=== PATIENT | male | born 1980 | race Caucasian/White ===

== ENCOUNTER 2024-07-17 09:45 | Emergency (ER) | payer OTHER, SELFPAY ==
--- OUTSIDE RECORDS SUMMARY | 2024-07-17 09:47 | XMS_ITS | Continuity of Care Document ---
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 It does not include entries that were removed or entered in error. Problem Status Onset Date Problem Type Date of Resolution Comments Source visit for: services physical Inactive 11/14/2013 Condition visit for: services physical (INITIAL POST-DEPLOYMENT ASSESSMENT: DOCUMENTED ON [id number]): Non-flyer. No referral. RTC or f/u as needed with PCM. Pt had all questions answered verbalized understanding and agreed to plan as above. p2 (preventive med) safety discussion. [facility] Patient Education - Medication Inactive Condition Patient Education - Medication (MEDICATION EDUCATION): medication education done by RN [facility] Medications Combined list of outpatient medications from Department of Defense and Veterans Affairs facilities.Medications provided include 1) outpatient medications from the last 15 months, and 2) patient-reported medications. Medication Details Route Status Patient Instructions Prescription Expires Prescription Number Last Dispense Date Ordering Provider Order Date Order Qty Source naproxen 500 mg oral tablet naproxen 500 mg oral tablet Start Date: 12/13/18 Status: Ordered Repeat number: 1 Ordered 2019 No Facilit y Access nortriptyli ne 10 mg oral capsule nortript yline 10 mg oral capsule Start Date: 12/13/18 Status: Ordered Repeat number: 1 Ordered 2019 No Facilit y Access Immunizations Combined list of available immunizations from the Department of Defense and Veterans Affairs facilities. 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 (MOD) complet ed SARS-COV- 2 (COVID-19 ) vaccine, mRNA, spike protein, LNP, preservat rebekah free, 100 mcg or 50 mcg dose DoD SARS-COV-2 (COVID-19) vaccine, mRNA, spike protein, LNP, preservative free, 100 mcg or 50 mcg dose 2 2020 [id number] 207 [employer] (MOD) complet ed SARS-COV- 2 (COVID-19 ) vaccine, mRNA, spike protein, LNP, preservat rebekah free, 100 mcg or 50 mcg dose DoD SARS-COV-2 (COVID-19) vaccine, mRNA, spike protein, LNP, preservative free, 100 mcg or 50 mcg dose 1 2020 [id number] 207 [employer] Inc. (MOD) complet ed SARS-COV- 2 (COVID-19 ) vaccine, mRNA, spike protein, LNP, preservat rebekah free, 100 mcg or 50 mcg dose DoD Influenza, injectable, Madin [place] Canine Kidney, preservative free, quadrivalent 1 2019 [id number] 171 Seqirus (SEQ) comple t ed Influenza , injectabl e, Madin [place] Canine Kidney, preservat rebekah free, quadrival ent DoD tetanus-dipht h toxoids (Td) adult/adol 2019 [id number] sanofi pasteur complet ed tetanus-d iphth toxoids (Td) adult/ado l 06/01/19 Given Ambulat ory Pharmac y tetanus and diphtheria toxoids, adsorbed, preservative free, for adult use (2 Lf of tetanus toxoid and 2 Lf of diphtheria toxoid) 3 2019 [id number] 09 Sanofi Pasteur (PMC) complet ed tetanus and diphtheri a toxoids, adsorbed, preservat rebekah free, for adult use (2 Lf of tetanus toxoid and 2 Lf of diphtheri a toxoid) DoD influenza, injectable, quadrivalent- pf 2018 [id number] 150 Seqirus complet ed influenza , injectabl e, quadrival ent-pf 01/20/19 Given Ambulat ory Pharmac y influenza, injectable, quadrivalent- pf 2018 [id number] 150 Se[employer]irus complet ed influenza , injectabl e, quadrival ent-pf 01/20/19 Given Ambulat ory Pharmac y Influenza, injectable, quadrivalent, preservative free 1 2018 [id number] 150 Seqirus (SEQ) complet ed Influenza , injectabl e, quadrival ent, preservat rebekah free DoD influenza, injectable, quadrivalent- pf 2017 [id number] 150 Seqirus complet ed influenza , injectabl e, quadrival ent-pf 12/20/17 Given Ambulat ory Pharmac y influenza, injectable, quadrivalent- pf 2017 [id number] 150 Seqirus complet ed influenza , injectabl e, quadrival ent-pf 12/20/17 Given Ambulat ory Pharmac y Influenza, injectable, quadrivalent, preservative free 20 2017 [id number] 150 Seqirus (SEQ) comple t ed Influenza , injectabl e, quadrival ent, preservat rebekah free DoD influenza, injectable, quadrivalent- pf 2016 [id number] 150 GlaxoSmithKli ne complet ed influenza , injectabl e, quadrival ent-pf 11/19/16 Given Ambulat ory Pharmac y influenza, injectable, quadrivalent- pf 2016 [id number] 150 GlaxoSmithKli ne complet ed influenza , injectabl e, quadrival ent-pf 11/19/16 Given Ambulat ory Pharmac y Influenza, injectable, quadrivalent, preservative free 1 2016 [id number] 150 SmithKline (SKB) complet ed Influenza , injectabl e, quadrival ent, preservat rebekah free DoD influenza, seasonal, injectable-pf 2014 [id number] 140 sanofi pasteur complet ed influenza , seasonal, injectabl e-pf 01/12/15 Given Ambulat ory Pharmac y influenza, seasonal, injectable-pf 2014 [id number] 140 sanofi pasteur complet ed influenza , seasonal, injectabl e-pf 01/12/15 Given Ambulat ory Pharmac y Influenza, seasonal, injectable, preservative free 1 2014 [id number] 140 Sanofi Pasteur ([facility]) complet ed Influenza , seasonal, injectabl e, preservat rebekah free DoD influenza, seasonal, injectable 2013 141 complet ed influenza , seasonal, injectabl e 01/16/14 Given Ambulat ory Pharmac y influenza, seasonal, injectable 2013 141 complet ed influenza , seasonal, injectabl e 01/16/14 Given Ambulat ory Pharmac y Influenza, seasonal, injectable 0 2013 141 (MVX) complet ed Influenza , seasonal, injectabl e DoD influenza, seasonal, injectable 2013 [id number] 141 Novartis Pharmaceutica ls complet ed influenza , seasonal, injectabl e 01/15/14 Given Ambulat ory Pharmac y influenza virus vaccine, unspecified 2013 [id number] 88 Novartis Pharmaceutica ls complet ed influenza virus vaccine, unspecifi ed 01/15/14 Given Ambulat ory Pharmac y influenza, seasonal, injectable 2013 [id number] 141 Novartis Pharmaceutica ls complet ed influenza , seasonal, injectabl e 01/15/14 Given Ambulat ory Pharmac y influenza virus vaccine, unspecified 2013 [id number] 88 Novartis Pharmaceutica ls complet ed influenza virus vaccine, unspecifi ed 01/15/14 Given Ambulat ory Pharmac y influenza virus vaccine, unspecified formulation 1 2013 [id number] 88 Novartis Pharmaceutica l Puja. (NOV) complet ed influenza virus vaccine, unspecifi ed formulati on DoD Influenza, seasonal, injectable 1 2013 [id number] 141 Novartis Pharmaceutica l Puja. (NOV) complet ed Influenza , seasonal, injectabl e DoD anthrax vaccine 2013 [id number] 24 Emergent [employer] complet ed anthrax vaccine 04/20/13 Given Ambulat ory Pharmac y measles/mumps /rubella virus vaccine 2013 [id number] 03 Merck & Company Inc complet ed measles/m umps/rube lla virus vaccine 04/20/13 Given Ambulat ory Pharmac y typhoid Vi capsular polysaccharid e vac 2013 [id number] 101 sanofi pasteur complet ed typhoid Vi capsular polysacch aride vac 04/20/13 Given Ambulat ory Pharmac y vaccinia (smallpox) vaccine 2013 VV04-00 [id number] 75 [employer] complet ed vaccinia (smallpox ) vaccine 04/20/13 Given Ambulat ory Pharmac y typhoid Vi capsular polysaccharid e vac 2013 [id number] 1 101 sanofi pasteur complet ed typhoid Vi capsular polysacch aride vac 04/20/13 Given Ambulat ory Pharmac y vaccinia (smallpox) vaccine 2013 [id number] [id number] 75 [employer] complet ed vaccinia (smallpox ) vaccine 04/20/13 Given Ambulat ory Pharmac y anthrax vaccine 2013 [id number] 24 [employer] complet ed anthrax vaccine 04/20/13 Given Ambulat ory Pharmac y measles/mumps /rubella virus vaccine 2013 [id number] 03 Merck & Company Inc complet ed measles/m umps/rube lla virus vaccine 04/20/13 Given Ambulat ory Pharmac y measles, mumps and rubella virus vaccine 2 2013 [id number] 03 Merck (MSD) complet ed measles, mumps and rubella virus vaccine DoD anthrax vaccine 5 2013 [id number] 24 [employer] [place] ([facility]) complet ed anthrax vaccine DoD vaccinia (smallpox) vaccine 1 2013 [id number] [id number] 75 [facility] ([facility]) complet ed vaccinia (smallpox ) vaccine DoD typhoid Vi capsular polysaccharid e vaccine 6 2013 [id number] 1 101 Sanofi Pasteur (PMC) complet ed typhoid Vi capsular polysacch aride vaccine DoD Influenza, injectable, MDCK-pf 2012 [id number] 153 Novartis Pharmaceutica ls complet ed Influenza , injectabl e, MDCK-pf 12/21/12 Given Ambulat ory Pharmac y Influenza, injectable, MDCK-pf 2012 [id number] 153 Novartis Pharmaceutica ls complet ed Influenza , injectabl e, MDCK-pf 12/21/12 Given Ambulat ory Pharmac y Influenza, injectable, Madin Suze Canine Kidney, preservative free 15 2012 [id number] 153 Novartis Pharmaceutica l Puja. (NOV) complet ed Influenza , injectabl e, Madin [place] Canine Kidney, preservat rebekah free DoD influenza, seasonal, injectable-pf 2011 [id number] 140 [employer] complet ed influenza , seasonal, injectabl e-pf 11/18/11 Given Ambulat ory Pharmac y influenza, seasonal, injectable-pf 2011 [id number] 140 [employer] complet ed influenza , seasonal, injectabl e-pf 11/18/11 Given Ambulat ory Pharmac y Influenza, seasonal, injectable, preservative free 14 2011 [id number] 140 [facility] Lot18, UYA100. (CSL) complet ed Influenza , seasonal, injectabl e, preservat rebekah free DoD influenza, seasonal, injectable 2010 [id number] 141 sanofi pasteur complet ed influenza , seasonal, injectabl e 01/15/11 Given Ambulat ory Pharmac y influenza, seasonal, injectable 2010 [id number] 141 sanofi pasteur complet ed influenza , seasonal, injectabl e 01/15/11 Given Ambulat ory Pharmac y Influenza, seasonal, injectable 1 2010 [id number] 141 Sanofi Pasteur (PMC) complet ed Influenza , seasonal, injectabl e DoD influenza virus vaccine,split 2010 [id number] 15 sanofi pasteur complet ed influenza virus vaccine,s plit 06/26/10 Given Ambulat ory Pharmac y influenza virus vaccine,split 2010 [id number] 15 sanofi pasteur complet ed influenza virus vaccine,s plit 06/26/10 Given Ambulat ory Pharmac y influenza virus vaccine, split virus (incl. purified surface antigen)-reti red CODE 1 2010 [id number] 15 Sanofi Pasteur (PMC) complet ed influenza virus vaccine, split virus (incl. purified surface antigen)- retired CODE DoD typhoid Vi capsular polysaccharid e vac 2009 [id number] 101 sanofi pasteur complet ed typhoid Vi capsular polysacch aride vac 05/22/09 Given Ambulat ory Pharmac y typhoid Vi capsular polysaccharid e vac 2009 [id number] 101 sanofi pasteur complet ed typhoid Vi capsular polysacch aride vac 05/22/09 Given Ambulat ory Pharmac y typhoid Vi capsular polysaccharid e vaccine 1 2009 [id number] 101 Sanofi Pasteur (PMC) complet ed typhoid Vi capsular polysacch aride vaccine DoD influenza virus vaccine, live 2008 [id number] 111 [employer] comple t ed influenza virus vaccine, live 11/15/08 Given Ambulat ory Pharmac y tetanus, diphtheria, acellular pertu is 2008 [id number] 115 sanofi pasteur complet ed tetanus, diphtheri a, acellular pertussis 11/15/08 Given Ambulat ory Pharmac y tetanus, diphtheria, acellular pertu is 2008 [id number] 115 sanofi pasteur complet ed tetanus, diphtheri a, acellular pertussis 11/15/08 Given Ambulat ory Pharmac y influenza virus vaccine, live 2008 [id number] 111 [employer] [employer] [facility] t ed influenza virus vaccine, live 11/15/08 Given Ambulat ory Pharmac y influenza virus vaccine, live, attenuated, for intranasal use 1 2008 [id number] 111 [employer] DSP, UYA100. ([facility]) complet ed influenza virus vaccine, live, attenuate d, for intranasa l use DoD tetanus toxoid, reduced diphtheria toxoid, and acellular pertu is vaccine, adsorbed 1 2008 [id number] 115 Sanofi Pasteur ([facility]) complet ed tetanus toxoid, reduced diphtheri a toxoid, and acellular pertussis vaccine, adsorbed DoD influenza virus vaccine,split 2008 [id number] 15 GlaxoSmithKli ne complet ed influenza virus vaccine,s plit 04/25/08 Given Ambulat ory Pharmac y influenza virus vaccine,split 2008 [id number] 15 GlaxoSmithKli ne complet ed influenza virus vaccine,s plit 04/25/08 Given Ambulat ory Pharmac y influenza virus vaccine, split virus (incl. purified surface antigen)-reti red CODE 1 2008 [id number] 15 [facility] (SKB) complet ed influenza virus vaccine, split virus (incl. purified surface antigen)- retired CODE DoD typhoid vaccine, inactivated 2007 W5311-7 101 sanofi pasteur complet ed typhoid vaccine, inactivat ed 02/17/07 Given Ambulat ory Pharmac y typhoid vaccine, inactivated 2007 [id number] 2 101 sanofi pasteur complet ed typhoid vaccine, inactivat ed 02/17/07 Given Ambulat ory Pharmac y typhoid vaccine, parenteral, other than acetone-kille d, dried 1 2007 [id number] 2 41 Sanofi Pasteur ([facility]) complet ed typhoid vaccine, parentera l, other than acetone-k illed, dried DoD influenza virus vaccine, live 2006 [id number] 111 [employer] [facility] t ed influenza virus vaccine, live 12/14/07 Given Ambulat ory Pharmac y influenza virus vaccine, live 2006 [id number] 111 [employer] comple t ed influenza virus vaccine, live 01/19/07 Given Ambulat ory Pharmac y influenza virus vaccine, live, attenuated, for intranasal use 1 2006 [id number] 111 [employer] DSP, UYA100. (MED) complet ed influenza virus vaccine, live, attenuate d, for intranasa l use DoD varicella virus vaccine 0 2006 21 () Not Given varicella virus vaccine DoD influenza virus vaccine,split 2005 [id number] 15 sanofi pasteur complet ed influenza virus vaccine,s plit 01/15/06 Given Ambulat ory Pharmac y influenza virus vaccine,split 2005 [id number] 15 sanofi pasteur complet ed influenza virus vaccine,s plit 01/15/06 Given Ambulat ory Pharmac y influenza virus vaccine, split virus (incl. purified surface antigen)-reti red CODE 1 2005 [id number] 15 Sanofi Pasteur ([facility]) complet ed influenza virus vaccine, split virus (incl. purified surface antigen)- retired CODE DoD influenza virus vaccine,split 2004 [id number] 15 sanofi pasteur complet ed influenza virus vaccine,s plit 12/25/04 Given Ambulat ory Pharmac y influenza virus vaccine,split 2004 [id number] 15 sanofi pasteur complet ed influenza virus vaccine,s plit 12/25/04 Given Ambulat ory Pharmac y influenza virus vaccine, split virus (incl. purified surface antigen)-reti red CODE 1 2004 [id number] 15 Sanofi Pasteur ([facility]) complet ed influenza virus vaccine, split virus (incl. purified surface antigen)- retired CODE DoD typhoid vaccine, inactivated 2004 [id number] 101 sanofi pasteur complet ed typhoid vaccine, inactivat ed 07/25/04 Given Ambulat ory Pharmac y typhoid vaccine, inactivated 2004 [id number] 2 101 sanofi pasteur complet ed typhoid vaccine, inactivat ed 07/25/04 Given Ambulat ory Pharmac y typhoid vaccine, parenteral, other than acetone-kille d, dried 1 2004 [id number] 2 41 Sanofi Pasteur ([facility]) complet ed typhoid vaccine, parentera l, other than acetone-k illed, dried DoD anthrax vaccine 2003 [id number] 24 [employer] complet ed anthrax vaccine 04/26/03 Given Ambulat ory Pharmac y anthrax vaccine 2003 [id number] 24 [employer] complet ed anthrax vaccine 04/26/03 Given Ambulat ory Pharmac y anthrax vaccine 5 2003 [id number] 24 [facility] complet ed anthrax vaccine DoD tuberculin purified protein derivative 2002 [id number] 96 sanofi pasteur complet ed tuberculi n purified protein derivativ e 11/30/02 Given Ambulat ory Pharmac y influenza virus vaccine, whole virus 2002 [id number] 16 sanofi pasteur complet ed influenza virus vaccine, whole virus 11/30/02 Given Ambulat ory Pharmac y influenza virus vaccine, whole virus 2002 [id number] 16 sanofi pasteur complet ed influenza virus vaccine, whole virus 11/30/02 Given Ambulat ory Pharmac y influenza virus vaccine, whole virus 0 2002 [id number] 16 Sanofi Pasteur (PMC) complet ed influenza virus vaccine, whole virus DoD anthrax vaccine 2002 [id number] 24 [employer] complet ed anthrax vaccine 10/02/02 Given Ambulat ory Pharmac y anthrax vaccine 2002 [id number] 24 [employer] complet ed anthrax vaccine 10/02/02 Given Ambulat ory Pharmac y anthrax vaccine 4 2002 [id number] 24 [facility] complet ed anthrax vaccine DoD vaccinia (smallpox) vaccine 2002 [id number] 75 [employer] complet ed vaccinia (smallpox ) vaccine 04/05/02 Given Ambulat ory Pharmac y anthrax vaccine 2002 [id number] 24 [employer] complet ed anthrax vaccine 04/05/02 Given Ambulat ory Pharmac y vaccinia (smallpox) vaccine 2002 [id number] 75 [employer] complet ed vaccinia (smallpox ) vaccine 04/05/02 Given Ambulat ory Pharmac y anthrax vaccine 2002 [id number] 24 [employer] complet ed anthrax vaccine 04/05/02 Given Ambulat ory Pharmac y anthrax vaccine 3 2002 [id number] 24 [facility]) complet ed anthrax vaccine DoD vaccinia (smallpox) vaccine 0 2002 [id number] [facility] vaccinia (smallpox ) vaccine DoD anthrax vaccine 2002 [id number] 24 [employer] complet ed anthrax vaccine 03/24/02 Given Ambulat ory Pharmac y anthrax vaccine 2002 [id number] 24 [employer] complet ed anthrax vaccine 03/24/02 Given Ambulat ory Pharmac y anthrax vaccine 2 2002 [id number] 24 [facility]) complet ed anthrax vaccine DoD typhoid vaccine, inactivated 2002 [id number] 101 sanofi pasteur complet ed typhoid vaccine, inactivat ed 03/08/02 Given Ambulat ory Pharmac y anthrax vaccine 2002 [id number] 24 [employer] complet ed anthrax vaccine 03/08/02 Given Ambulat ory Pharmac y typhoid vaccine, inactivated 2002 [id number] 101 sanofi pasteur complet ed typhoid vaccine, inactivat ed 03/08/02 Given Ambulat ory Pharmac y anthrax vaccine 2002 [id number] 24 [employer] complet ed anthrax vaccine 03/08/02 Given Ambulat ory Pharmac y anthrax vaccine 1 2002 [id number] 24 [facility] ([facility]) complet ed anthrax vaccine DoD typhoid vaccine, parenteral, other than acetone-kille d, dried 0 2002 [id number] 41 Sanofi Pasteur ([facility]) complet ed typhoid vaccine, parentera l, other than acetone-k illed, dried DoD tuberculin purified protein derivative 2001 96 complet ed tuberculi n purified protein derivativ e 11/24/01 Given Ambulat ory Pharmac y influenza virus vaccine, whole virus 2001 [id number] 16 [facility] complet ed influenza virus vaccine, whole virus 11/24/01 Given Ambulat ory Pharmac y influenza virus vaccine, whole virus 2001 [id number] 16 [facility] complet ed influenza virus vaccine, whole virus 11/24/01 Given Ambulat ory Pharmac y influenza virus vaccine, whole virus 0 2001 [id number] [facility] influenza virus vaccine, whole virus DoD tuberculin purified protein derivative 2001 [id number] 96 sanofi pasteur complet ed tuberculi n purified protein derivativ e 10/27/01 Given Ambulat ory Pharmac y influenza virus vaccine, whole virus 2000 [id number] 16 [facility] complet ed influenza virus vaccine, whole virus 11/25/00 Given Ambulat ory Pharmac y influenza virus vaccine, whole virus 2000 [id number] 16 [facility] complet ed influenza virus vaccine, whole virus 11/25/00 Given Ambulat ory Pharmac y influenza virus vaccine, whole virus 0 2000 [id number] 16 [facility] complet ed influenza virus vaccine, whole virus DoD hepatitis B adult vaccine 2000 [id number] 43 [employer] complet ed hepatitis B adult vaccine 11/07/00 Given Ambulat ory Pharmac y hepatitis B adult vaccine 2000 [id number] 43 [employer] complet ed hepatitis B adult vaccine 11/07/00 Given Ambulat ory Pharmac y hepatitis B vaccine, adult dosage 3 2000 [id number] 43 [place] (CON) complet ed hepatitis B vaccine, adult dosage DoD tuberculin purified protein derivative 2000 [id number] 96 [employer] complet ed tuberculi n purified protein derivativ e 09/23/00 Given Ambulat ory Pharmac y yellow fever vaccine 2000 [id number] 37 sanofi pasteur complet ed yellow fever vaccine 09/23/00 Given Ambulat ory Pharmac y yellow fever vaccine 2000 [id number] 37 sanofi pasteur complet ed yellow fever vaccine 09/23/00 Given Ambulat ory Pharmac y yellow fever vaccine 0 2000 [id number] 37 Sanofi Pasteur (PMC) complet ed yellow fever vaccine DoD hepatitis B adult vaccine 2000 [id number] 43 [employer] complet ed hepatitis B adult vaccine 05/27/00 Given Ambulat ory Pharmac y hepatitis B adult vaccine 2000 [id number] 43 [employer] complet ed hepatitis B adult vaccine 05/27/00 Given Ambulat ory Pharmac y hepatitis B vaccine, adult dosage 2 2000 [id number] 43 [place] (CON) complet ed hepatitis B vaccine, adult dosage DoD hepatitis A adult vaccine 2000 [id number] 52 [employer] Inc complet ed hepatitis A adult vaccine 04/22/00 Given Ambulat ory Pharmac y hepatitis B adult vaccine 2000 [id number] 43 [employer] complet ed hepatitis B adult vaccine 04/22/00 Given Ambulat ory Pharmac y typhoid vaccine, inactivated 2000 [id number] sanofi pasteur complet ed typhoid vaccine, inactivat ed 04/22/00 Given Ambulat ory Pharmac y hepatitis B adult vaccine 2000 [id number] 43 [employer] complet ed hepatitis B adult vaccine 04/22/00 Given Ambulat ory Pharmac y typhoid vaccine, inactivated 2000 [id number] sanofi pasteur complet ed typhoid vaccine, inactivat ed 04/22/00 Given Ambulat ory Pharmac y hepatitis A adult vaccine 2000 [id number] 52 [employer] Inc complet ed hepatitis A adult vaccine 04/22/00 Given Ambulat ory Pharmac y typhoid vaccine, parenteral, other than acetone-kille d, dried 0 2000 [id number] 41 Sanofi Pasteur (PMC) complet ed typhoid vaccine, parentera l, other than acetone-k illed, dried DoD hepatitis B vaccine, adult dosage 1 2000 [id number] 43 [place] (CON) complet ed hepatitis B vaccine, adult dosage DoD hepatitis A vaccine, adult dosage 2 2000 [id number] 52 Merck (MSD) complet ed hepatitis A vaccine, adult dosage DoD influenza virus vaccine, whole virus 1999 [id number] 16 Unknown complet ed influenza virus vaccine, whole virus 01/16/00 Given Ambulat ory Pharmac y influenza virus vaccine, whole virus 1999 [id number] 16 Unknown complet ed influenza virus vaccine, whole virus 01/16/00 Given Ambulat ory Pharmac y influenza virus vaccine, whole virus 0 1999 [id number] 16 Other (OTH) complet ed influenza virus vaccine, whole virus DoD influenza virus vaccine, whole virus 1998 [id number] 16 [facility] complet ed influenza virus vaccine, whole virus 11/21/98 Given Ambulat ory Pharmac y influenza virus vaccine, whole virus [id number] 16 [facility] complet ed influenza virus vaccine, whole virus 11/21/98 Given Ambulat ory Pharmac y influenza virus vaccine, whole virus 0 [id number] 16 [facility] (CON) complet ed influenza virus vaccine, whole virus DoD poliovirus vaccine, live, oral 1998 [id number] 02 [facility] complet ed polioviru s vaccine, live, oral 08/07/98 Given Ambulat ory Pharmac y hepatitis A adult vaccine 1998 [id number] 52 [employer] complet ed hepatitis A adult vaccine 08/07/98 Given Ambulat ory Pharmac y poliovirus vaccine, live, oral 1998 [id number] 02 [facility] complet ed polioviru s vaccine, live, oral 08/07/98 Given Ambulat ory Pharmac y hepatitis A adult vaccine 1998 [id number] 52 [employer] complet ed hepatitis A adult vaccine 08/07/98 Given Ambulat ory Pharmac y trivalent poliovirus vaccine, live, oral 0 1998 [id number] 02 [facility] ([facility]) comple t ed trivalent polioviru s vaccine, live, oral DoD hepatitis A vaccine, adult dosage 1 1998 [id number] [employer] (MSD) complet ed hepatitis A vaccine, adult dosage DoD measles/mumps /rubella virus vaccine 1998 03 complet ed measles/m umps/rube lla virus vaccine 08/06/98 Given Ambulat ory Pharmac y measles/mumps /rubella virus vaccine 1998 03 complet ed measles/m umps/rube lla virus vaccine 08/06/98 Given Ambulat ory Pharmac y measles, mumps and rubella virus vaccine 0 1998 03 () complet ed measles, mumps and rubella virus vaccine DoD meningococcal polysaccharid e (MPSV4) [id number] 32 [facility] complet ed meningoco ccal polysacch aride (MPSV4) 07/31/98 Given Ambulat ory Pharmac y tetanus-dipht h toxoids (Td) adult/adol 1998 [id number] 09 [facility] complet ed tetanus-d iphth toxoids (Td) adult/ado l 07/31/98 Given Ambulat ory Pharmac y tuberculin purified protein derivative 1998 [id number] 96 [facility] complet ed tuberculi n purified protein derivativ e 07/31/98 Given Ambulat ory Pharmac y influenza virus vaccine, whole virus [id number] 16 [facility] complet ed influenza virus vaccine, whole virus 07/31/98 Given Ambulat ory Pharmac y meningococcal polysaccharid e (MPSV4) [id number] 32 [facility] complet ed meningoco ccal polysacch aride (MPSV4) 07/31/98 Given Ambulat ory Pharmac y influenza virus vaccine, whole virus [id number] 16 [facility] complet ed influenza virus vaccine, whole virus 07/31/98 Given Ambulat ory Pharmac y tetanus-dipht h toxoids (Td) adult/adol 1998 [id number] 09 [facility] complet ed tetanus-d iphth toxoids (Td) adult/ado l 07/31/98 Given Ambulat ory Pharmac y tetanus and diphtheria toxoids, adsorbed, preservative free, for adult use (2 Lf of tetanus toxoid and 2 Lf of diphtheria toxoid) 0 1998 [id number] 09 [facility] (CON) complet ed tetanus and diphtheri a toxoids, adsorbed, preservat rebekah free, for adult use (2 Lf of tetanus toxoid and 2 Lf of diphtheri a toxoid) DoD influenza virus vaccine, whole virus 0 [id number] 16 [facility] ([facility]) complet ed influenza virus vaccine, whole virus DoD meningococcal polysaccharid e vaccine (MPSV4) 0 [id number] 32 [facility] (CON) complet ed meningoco ccal polysacch aride vaccine (MPSV4) DoD Results Combined list of recent chemistry, hematology and other laboratory results from Department of Defense and [facility], ranging from 15 months to all on record, depending upon the facility. Order Name Results Value Reference Range Date Interpretation Specimen Comments Source Infectiou s Disease HIV-1/O/2 Non-Reac tive 1 (05/13/23 2:28 PM) 05/12 N Interpretiv e Data: INTERPRETAT ION: This method is a screening procedure for the detection of HIV p24 Antigen and Antibodies to HIV-1, including Group O, and/or HIV-2. NON-REACTIV E: HIV-1 antigen and HIV-1 / HIV-2 antibodies were not detected. No laboratory evidence of HIV infection. A negative test result does not exclude the possibility of exposure to or infection with HIV. HIV antibodies and/or p24 antigen may be undetectabl e in some stages of the infection and in some clinical conditions. If acute HIV infection is suspected, consider submitting another specimen to a reference laboratory for HIV-1 RNA. SCREEN REACTIVE - CONFIRMATIO N TO FOLLOW: Possible presence of HIV-1antibo dies, HIV-2 antibodies and/or HIV-1 p24 antigen. Specimen will reflex to the confirmatio n testing that fulfills the Center for Disease Control and Prevention' s HIV diagnostic algorithm. Refer to [facility] Lab Guide for additional information : [email or web address]://[employer]. [facility]/ [email or web address]/la [email or web address] x Testing performed by Hever rodriges. [id number] [facility] EPIL[facility] Miscellan eous Sendouts Repository Sample Received (05/13/23 2:28 PM) 05/12 N [address] [facility] EP[facility] Encounters Combined list of: 1) Encounters from Department of Veterans Affairs facilities going backup to the last 18 months, not all VA inpatient encounters are included; 2) Encounters from the Department of Defense facilities going backup to 280 months. Location Location Details Encounter Type Encounter Number Reason For Visit Attending Provider ADM Date DC Date Status Disposition Source Theater Facility OUTPATIENT [id number] Theater Provider 09/16 Released w/o Limitations Theater Facilit [facility] Theater Facility OUTPATIENT [id number] Theater Provider 11/14 Released w/o Limitations Theater Facilit y [facility] [place] [address](AFN G [address]) OUTPATIENT [id number] Notes Entered by: BALJEET GALINDO 31 Dec 2018 1208 ------- ------- ------- ------- -- DHA4 RAMESH LÓPEZ 12/31 Released w/o Limitations [facility] [place] [address](A FNG [address]) [place] [address](AFN G [address]) OUTPATIENT [id number] Notes Entered by: BALJEET GALINDO 20 Feb 2019 0847 ------- ------- ------- ------- -- NAI LÓPEZ RAMESH Horton 02/20 [facility]ased w[facility]o Limitations [facility] [place] [address](A FNG [address]FM) [place] [address](AFN G [address]) OUTPATIENT [id number] Notes Entered by: Renetta VALLADARES 29 Apr 2019 0847 ------- ------- ------- ------- -- TriKerriSer RAMESH Moore 04/28 [facility]ased w/o Limitations [facility] [place] [address](A FNG [address]FM) [place] [address](AFN G [address]) OUTPATIENT [id number] Notes Entered by: Renetta VALLADARES 04 May 2021 0744 ------- ------- ------- ------- -- Tri-Ser EZIO Henriquez 05/04 [facility] [place] [address](A FNG [address]) [id number] [facility] [id number] FRANCISCO JAVIER DING 05/10 Discharge Disposition: Home or Self Care [id number] MDG Procedures Combined list of: 1) Procedures from Department of Veterans Affairs facilities going back up to thelast 18 months, not all VA non-surgical procedures are included; 2) All procedures from the Department of Defense facilities. Procedure Procedure Type Code Date Perfomer Comments Sourc e No data available for this section Ambulatory P harmacy Social History Combined list of available smoking, tobacco, and other social history from Department of Defense and Veterans Affairs facilities. Social History Type Response Date Comment [facility] e Sex Representation Male (finding) 11/08/2019 Un known Organization Sexual Orientation Ambula tory Pharmacy Gender identity Ambulator y Pharmacy This section is an empty social history section. [facility] Assessment and Plan Combined list of future care activities from Department of Defense and Veterans Affairs facilities (e.g., assessment and plan notes, appointments, orders, and referrals). Additional future care activities may be listed in the Plan of Care section. Result Assessment and Plan Date Source Assessment and Plan No data available for this section 07/17/2024 Ambulatory Pharmacy Functional Status Combined list of recent functional and cognitive assessments recorded at Department of Defense and Veterans Affairs (VA).VA Functional [place] Measurement (FIM) Scale: 1 = Total Assistance (Subject = 0% +), 2 = Maximal Assistance (Subject = 25% +), 3 = Moderate Assistance (Subject = 50% +), 4 = Minimal Assistance (Subject = 75% +), 5 = Supervision, 6 = Modified [place] (Device), 7 = Complete [place] (Timely, Safely). Assessment Date/Time Source Assessment Type Assessment Skill Assessment Score Assessment Details No data available for this section
--- OUTSIDE RECORDS SUMMARY | 2024-07-17 09:48 | XMS_ITS | Clinical Summary ---
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 Role Phone Pcp, No Primary Care Provider Unavailabl e Allergies No known active allergies Medications No known medications Active Problems Problem Noted Date Diagnosed Date Hemangioma 09/30/2011 Immunizations Immunization Administration Dates Next Due Anthrax Vaccine 04/20/2013 Hepatitis A (Adult) 04/22/2000 Hepatitis B (Adult) 11/07/2000,04/22/2000 Influenza Virus, Unspecified 01/15/2014 Influenza, IIV4 01/20/2019,11/19/2016 Influenza, Whole Virus 11/30/2002 MMR, Unspecified 04/20/2013,08/06/1998 Meningococcal Vaccine (Menomune) 07/31/1998 Oral Polio Vaccine 08/07/1998 Pneumococcal Poly,23-Valent (Pneumovax) 03/10/19 17 Smallpox (Vaccinia) Live [id number] 04/20/2013 Td (Age >=7 Years) 07/31/1998 Tdap 03/10/2016,11/15/2008 Typhoid (injectable) 04/20/2013,05/22/2009 Typhoid Parenteral,Killed 02/17/2007,04/22/2000 Yellow Fever 09/23/2000 Family History Medical History Relation Name Comments Hypertension Father Heart Disease Maternal Grandfather Heart Disease Paternal Grandfather Cancer Paternal Grandmother Relation Name Status Comments Father Maternal Grandfather Paternal Grandfather Paternal Grandmother Social History Tobacco Use Types Packs/Day Years Used Date Smoking Tobacco: Former Cigarettes 0.8 16 1 03/27/2001 - 01/29/2018 Smokeless Tobacco: Former Tobacco Cessation:Counseling Given: Yes Alcohol Use Standard Drinks/Week Comments Not Currently 0 (1 standard drink = 0.6 oz pur e alcohol) occ. PHQ-2 Answer Date Recorded PHQ-2 TOTAL SCORE 0 07/16/2020 Social Connections Answer Date Recorded Frequency of Communication with Friends and Fami ly Not on file 02/06/2021 Financial Resource Strain Answer Date R ecorded Difficulty of Paying Living Expenses Not on file 02/06/2021 Difficulty of Paying Living Expenses Not on file 02/06/2021 Interpersonal Safety Answer Date Record ed Are you being hit, kicked, p ushed or yelled at (see row info)? No 04/03/2023 Interpersonal Safety Abuse 12 - 18 Not on file 04/03/2023 Interpersonal Safety Ambulatory Vulnerability No t on file 04/03/2023 Sex and Gender Information Value Date Recorded Sex Assigned at Not on file Legal Sex Male 7:25 AM PHYSICAL BIOCHEMIST Gender Identity Not on file Sexual Orientation Not on file Obstetrics History Last Filed Vital Signs Vital Sign Reading Time Taken Comments Blood Pressure 120/74 03/21/2024 5:32 PM PHYSICAL BIOCHEMIST Pulse 71 03/21/2024 5:32 PM PHYSICAL BIOCHEMIST Temperature 36.6 C (97.9 F) 03/21/2024 4:49 PM PHYSICAL BIOCHEMIST Respiratory Rate 16 03/21/2024 4:49 PM PHYSICAL BIOCHEMIST Oxygen Saturation 98% 03/21/2024 4:49 PM PHYSICAL BIOCHEMIST Inhaled Oxygen Concentration - - Weight 90.7 kg (200 lb) 03/21/2024 4:49 PM PHYSICAL BIOCHEMIST Height 180.3 cm (5' 11) 04/03/2023 5:52 AM PHYSICAL BIOCHEMIST Body Mass Index 27.89 04/03/2023 5:52 AM PHYSICAL BIOCHEMIST Plan of Treatment Health Maintenance Due Date Last Done Comments Depression screening for age 12+ 1990 HIV for age 15-65 1993 Hepatitis C screening for age 18-79 1996 Hepatitis B series for 19+ (3 of 3 - 19+ 3-dose series) 01/02/2001 11/07/2000, 04/22/2000 BMI (ht and wt on same day) for age 18+ 07/16/2021 07/16/2020, 06/17/2020, 06/05/2018, Additional history exists Colonoscopy through age 75 04/14/2023 Lipids for age 45-75 04/14/2023 COVID-19 vaccine series (1 - 2024-25 season) 2023 Influenza Vaccine (Season Ended) 2024 01/20/2019, 11/19/2016, 01/15/2014, Additional history exists Tetanus booster 03/10/2026 03/10/2016, 11/06, 07/31/1998 Pneumococcal series for age 6-49 Aged Out 03/10/2016 No longer eligible based on patient's age to complete this topic Tdap Completed 03/10/2016, 11/15/2008 Insurance [facility] 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 PCP - General 03/08/18
[2024-07-17 09:59] VITALS: BP 128/89; PULSE 95; RESP 16; TEMP 37; O2SAT 99; BMI 27.9
--- NOTE | 2024-07-17 10:38 | ED.GENADULT ---
HPI - General Adult General Chief complaint: Headache/Migraine Stated complaint: pian on eyes, head, swelling on legs Time Seen by Provider: 07/17/24 10:30 History of Present Illness HPI narrative: 44 year old white male with history of traumatic brain injury in 2017, he gets frequent headaches. He has a facial headache today. He has had these in the past. He has had trouble sinus infection the past but does not feel like that is currently the case, feels like this is more his headache problem. . He gets little bit trapezius muscle pain and tension type headache as well with them headaches he gets.. He reports no fevers, chills, cough, chest pain or shortness of breath. He has had some little bit aching in his proximal thighs but he is moving well walking normally. He reports this is a headache that he gets but again it is a significant headache for him. No nuchal rigidity. No thunderclap nature to the headache. Related Data Home Medications ?Medication ?Instructions ?Recorded ?Confirmed No Known Home Medications 07/17/24 07/17/24 Allergies Allergy/AdvReac Type Severity Reaction Status Date / Time No Known Drug Allergies Allergy Verified 07/17/24 09:59 Review of Systems Status of ROS: Reports: 6 or more systems reviewed and unremarkable except as noted in History and below Exam Narrative: Exam Narrative: Objective vital signs within normal limits Patient is alert orient x3 no cyanosis no facial asymmetry noted Pupils aggression light extra moves intact Neck is supple Neurologic upper extremities he is moving all extremities. No palpable pain to his thighs Const: Vital Signs, click to edit/add: Vital Signs - 24 hr 07/17/24 09:59 07/17/24 11:15 Temperature 98.6 F Pulse Rate [Pulse Oximeter] 95 88 Respiratory Rate 16 16 Blood Pressure [Ri ght Upper Arm] 128/89 119/83 Pulse Oximetry 99 95 Oxygen Delivery Me thod Room Air Room Air Course Vital Signs Vital signs: Initial Vital Signs Temperature 98.6 F 07/17/24 09:59 Temperature Source Temporal Artery Scan 07/17/24 09:59 Pulse Rate 95 07/17/24 09:59 Pulse Rhythm Regular 07/17/24 09:59 Respiratory Rate 16 07/17/24 09:59 Blood Pressure 128/89 07/17/24 09:59 Blood Pressure Mean 102 07/17/24 09:59 Blood Pressure Position High-Fowlers 07/17/24 09:59 Pulse Oximetry 99 07/17/24 09:59 Oxygen Delivery Method Room Air 07/17/24 09:59 Vital Signs Temperature 98.6 F 07/17/24 09:59 Pulse Rate 95 07/17/24 09:59 Respiratory Rate 16 07/17/24 09:59 Blood Pressure 128/89 07/17/24 09:59 Pulse Oximetry 99 07/17/24 09:59 Oxygen Delivery Method Room Air 07/17/24 09:59 Temperature 98.6 F 07/17/24 09:59 Pulse Rate 88 07/17/24 11:15 Respiratory Rate 16 07/17/24 11:15 Blood Pressure 119/83 07/17/24 11:15 Pulse Oximetry 95 07/17/24 11:15 Oxygen Delivery Method Room Air 07/17/24 11:15 Medications Administered Medications: Discontinued Medications Generic Name Dose Route Start Last Admin Trade Name Freq PRN Reason Stop Dose Admin Diphenhydramine HCl 50 mg 07/17/24 10:37 07/17/24 10:45 Diphenhydramine 50 Mg/Ml Inj IVP 07/17/24 10:38 50 mg ONCE ONE Administration Metoclopramide HCl 10 mg/ 102 mls @ 306 mls/hr 07/17/24 10:37 07/17/24 11:10 Sodium Chloride IV 07/17/24 10:38 Infused ONCE ONE Infusion Sodium Chloride 1,000 mls @ 6,000 mls/hr 07/17/24 10:45 07/17/24 11:45 0.9 % Sodium Chloride 1000 Ml IV 07/17/24 10:54 Infused .Q10M SHANTHI Infusion Ketorolac Tromethamine 30 mg 07/17/24 10:37 07/17/24 10:46 Ketorolac 30 Mg/Ml Inj IVP 07/17/24 10:38 30 mg ONCE ONE Administration Medical Decision Making MDM Narrative Medical decision making narrative: 44-year-old male with a traumatic brain injury with history of headaches with the facial and frontal headache. I think at this point we treat this like a mixed headache of migraine and tension will give him Toradol, Benadryl, Reglan, IV fluid. I think this will help his situation. Will write him a note for off work for 3 days to make sure all the meds clear and that he is doing well. Recommend recheck with primary care in the next 2-3 days. Return to ED sooner problems concerns worsening or changes. Discharge Plan Discharge Clinical Impression: Headache Patient Disposition: Home w/ Parent or Adult Condition: Stable Additional Instructions: Rest, fluids, off work for 3 days, recheck with regular doctor at that time, return to ED sooner problems or concerns. Activity Level: Light activity Discharge Diet: Regular Prescriptions: No Action No Known Home Medications Follow Up/Referrals: Provider,Not a Local [Primary Care Provider, Family Practice] Stand Alone Forms: [email or web address] Info Instructions
[2024-07-17] MEDS: diphenhydrAMINE 50 MG/ML inj IVP (10:45)
[2024-07-17] MEDS: 0.9 % SODIUM CHLORIDE 1000 ml 1,000 ML 6000 ML IV (10:45)
[2024-07-17] MEDS: KETOROLAC 30 MG/ML inj IVP (10:46)
[2024-07-17] MEDS: METOCLOPRAMIDE HCL 10 MG in 0.9 % SODIUM CHLORIDE 100 ml 100 ML 306 MG IV (10:47)
--- OUTSIDE RECORDS SUMMARY | 2024-07-17 11:10 | XMS_ITS | Continuity of Care Document ---
Author Name [facility] Organization [facility] Care Team Providers Care Warehouse Driver Name Role Phone 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 It does not include entries that were removed or entered in error. Problem Status Onset Date Problem Type Date of Resolution Comments Source visit for: services physical Inactive 11/14/2013 Condition visit for: services physical (INITIAL POST-DEPLOYMENT ASSESSMENT: [id number]): Non-flyer. No referral. RTC or f/u as needed with PCM. Pt had all questions answered verbalized understanding and agreed to plan as above. p2 (preventive med) safety discussion. [facility] Patient Education - Medication Inactive Condition Patient Education - Medication (MEDICATION EDUCATION): medication education done by RN [facility] Medications Combined list of outpatient medications from [...] Site Reaction Lot Number CVX Code Drug Chief Contract Officer Status Comments Source Influenza, injectable, quadrivalent, preservative free 1 2020 [id number] 150 SmithKline (SKB) complet ed Influenza , injectabl e, quadrival ent, preservat rebekah free [facility] SARS-COV-2 (COVID-19) vaccine, mRNA, spike protein, LNP, preservative free, 100 mcg or 50 mcg dose 3 2020 [id number] 207 [employer] Inc. (MOD) complet ed SARS-COV- 2 (COVID-19 ) vaccine, mRNA, spike protein, LNP, preservat rebekah free, 100 mcg or 50 mcg dose DoD SARS-COV-2 (COVID-19) vaccine, mRNA, spike protein, LNP, preservative free, 100 mcg or 50 mcg dose 2 2020 [id number] 207 [employer] Inc. (MOD) complet ed SARS-COV- 2 (COVID-19 ) vaccine, mRNA, spike protein, LNP, preservat rebekah free, 100 mcg or 50 mcg dose DoD SARS-COV-2 (COVID-19) vaccine, mRNA, spike protein, LNP, preservative free, 100 mcg or 50 mcg dose 1 2020 [id number] 207 [employer]. (MOD) complet ed SARS-COV- 2 (COVID-19 ) vaccine, mRNA, spike protein, LNP, preservat rebekah free, 100 mcg or 50 mcg dose DoD Influenza, injectable, Madin Pickering Canine Kidney, preservative free, quadrivalent 1 2019 [id number] 171 Seqirus (SEQ) comple t ed Influenza , injectabl e, Madin Pickering Canine Kidney, preservat rebekah free, quadrival ent [...] toxoid) DoD influenza, injectable, quadrivalent- pf 2018 [id number] 150 Se[employer] complet ed influenza , injectabl e, quadrival ent-pf 01/20/19 Given Ambulat ory Pharmac y influenza, injectable, quadrivalent- pf 2018 [id number] 150 [employer] complet ed influenza , injectabl e, quadrival ent-pf 01/20/19 Given Ambulat ory Pharmac y Influenza, injectable, quadrivalent, preservative free 1 2018 [id number] 150 Se[employer] (SEQ) complet ed Influenza , injectabl e, quadrival ent, preservat rebekah free DoD influenza, injectable, quadrivalent- pf 2017 [id number] 150 [employer] complet ed influenza , injectabl e, quadrival ent-pf 12/20/17 Given Ambulat ory Pharmac y influenza, injectable, quadrivalent- pf 2017 [id number] 150 [employer] complet ed influenza , injectabl e, quadrival ent-pf 12/20/17 Given Ambulat ory Pharmac y Influenza, injectable, quadrivalent, preservative free 20 2017 [id number] 150 Se[employer]irus (SEQ) comple t ed Influenza [...] rebekah free DoD influenza, seasonal, injectable-pf 2014 [id number] 140 sanofi pasteur complet ed influenza , seasonal, injectabl e-pf 01/12/15 Given Ambulat ory Pharmac y influenza, seasonal, injectable-pf 2014 [id number] 140 sanofi pasteur complet ed influenza , seasonal, injectabl e-pf 01/12/15 Given Ambulat ory Pharmac y Influenza, seasonal, injectable, preservative free 1 2014 [id number] 140 Sanofi Pasteur ([facility]) complet ed Influenza , seasonal, injectabl e, [...] injectabl e DoD influenza, seasonal, injectable 2013 [id number] 141 Novartis Pharmaceutica ls complet ed influenza , seasonal, injectabl e 01/15/14 Given Ambulat ory Pharmac y influenza virus vaccine, unspecified 2013 [id number] 88 Novartis Pharmaceutica ls complet ed influenza virus vaccine, unspecifi ed 01/15/14 Given Ambulat ory Pharmac y influenza, seasonal, injectable 2013 [id number] 141 Novartis Pharmaceutica ls complet ed influenza , seasonal, injectabl e 01/15/14 Given Ambulat ory Pharmac y influenza virus vaccine, unspecified 2013 [id number] 88 Novartis Pharmaceutica ls complet ed influenza virus vaccine, unspecifi ed 01/15/14 Given Ambulat ory Pharmac y influenza virus vaccine, unspecified formulation 1 2013 [id number] 88 Novartis Pharmaceutica l Puja. (NOV) complet ed influenza virus vaccine, unspecifi ed formulati on DoD Influenza, seasonal, injectable 1 2013 [id number] 141 Novartis Pharmaceutica l Puja. (NOV) complet ed Influenza , seasonal, injectabl e DoD anthrax vaccine 2013 [id number] 24 Emergent Bios[employer] complet ed anthrax vaccine 04/20/13 Given Ambulat ory Pharmac y measles/mumps /rubella virus vaccine 2013 [id number] 03 Merck & Company Inc complet ed measles/m umps/rube lla virus vaccine 04/20/13 Given Ambulat ory Pharmac y typhoid Vi capsular polysaccharid e vac 2013 [id number] 101 sanofi pasteur complet ed typhoid Vi capsular polysacch aride vac 04/20/13 Given Ambulat ory Pharmac y vaccinia (smallpox) vaccine 2013 VV04-00 [id number] 75 Kadmus Pharm[employer] complet ed vaccinia (smallpox ) vaccine 04/20/13 Given Ambulat ory Pharmac y typhoid Vi capsular polysaccharid e vac 2013 [id number] 1 101 sanofi pasteur complet ed typhoid Vi capsular polysacch aride vac 04/20/13 Given Ambulat ory Pharmac y vaccinia (smallpox) vaccine 2013 [id number] [id number] 75 [employer] complet ed vaccinia (smallpox ) vaccine 04/20/13 Given Ambulat ory Pharmac y anthrax vaccine 2013 [id number] 24 [employer] complet ed anthrax vaccine 04/20/13 Given Ambulat ory Pharmac y measles/mumps /rubella virus vaccine 2013 [id number] 03 Merck & Company Inc complet ed measles/m umps/rube lla virus vaccine 04/20/13 Given Ambulat ory Pharmac y measles, mumps and rubella virus vaccine 2 2013 [id number] 03 Merck (MSD) complet ed measles, mumps and rubella virus vaccine DoD anthrax vaccine 5 2013 [id number] 24 [employer]gent [employer] Christmas ([facility]) complet ed anthrax vaccine DoD vaccinia (smallpox) vaccine 1 2013 [id number] 75 [facility] complet ed vaccinia (smallpox ) vaccine DoD typhoid Vi capsular polysaccharid e vaccine 6 2013 [id number] 1 101 Sanofi Pasteur (PMC) complet ed typhoid Vi capsular polysacch aride vaccine DoD Influenza, injectable, MDCK-pf 2012 [id number] 153 Novartis Pharmaceutica ls complet ed Influenza , injectabl e, MDCK-pf 12/21/12 Given Ambulat ory Pharmac y Influenza, injectable, MDCK-pf 2012 [id number] 153 Novartis Pharmaceutica ls complet ed Influenza , injectabl e, MDCK-pf 12/21/12 Given Ambulat ory Pharmac y Influenza, injectable, Madin Suze Canine Kidney, preservative free 15 2012 [id number] 153 Novartis Pharmaceutica l Puja. (NOV) complet ed Influenza , injectabl e, Madin Pickering Canine Kidney, preservat rebekah free DoD influenza, seasonal, injectable-pf 2011 [id number] 140 CSL Behring complet ed influenza , seasonal, injectabl e-pf 11/18/11 Given Ambulat ory Pharmac y influenza, seasonal, injectable-pf 2011 [id number] 140 CSL Behring complet ed influenza , seasonal, injectabl e-pf 11/18/11 Given Ambulat ory Pharmac y Influenza, seasonal, injectable, preservative free 14 2011 [id number] 140 [facility] [employer], [employer]. (CSL) complet ed Influenza , seasonal, injectabl e, preservat rebekah free DoD influenza, seasonal, injectable 2010 [id number] 141 sanofi pasteur complet ed influenza , seasonal, injectabl e 01/15/11 Given Ambulat ory Pharmac y influenza, seasonal, injectable 2010 [id number] 141 sanofi pasteur complet ed influenza , seasonal, injectabl e 01/15/11 Given Ambulat ory Pharmac y Influenza, seasonal, injectable 1 2010 [id number] 141 Sanofi Pasteur (PMC) complet ed Influenza , seasonal, injectabl e DoD influenza virus vaccine,split 2010 [id number] 15 sanofi pasteur complet ed influenza virus vaccine,s plit 06/26/10 Given Ambulat ory Pharmac y influenza virus vaccine,split 2010 [id number] 15 sanofi pasteur complet ed influenza virus vaccine,s plit 06/26/10 Given Ambulat ory Pharmac y influenza virus vaccine, split virus (incl. purified surface antigen)-reti red CODE 1 2010 [id number] 15 Sanofi Pasteur (PMC) complet ed influenza [...] vaccine DoD influenza virus vaccine, live 2008 [id number] 111 [employer] comple t ed influenza virus vaccine, live 11/15/08 Given Ambulat ory Pharmac y tetanus, diphtheria, acellular pertu is 2008 [id number] 115 sanofi pasteur complet ed tetanus, diphtheri a, acellular pertussis 11/15/08 Given Ambulat ory Pharmac y tetanus, diphtheria, acellular pertu is 2008 [id number] 115 sanofi pasteur complet ed tetanus, diphtheri a, acellular pertussis 11/15/08 Given Ambulat ory Pharmac y influenza virus vaccine, live 2008 [id number] 111 [employer] [facility] t ed influenza virus vaccine, live 11/15/08 Given Ambulat ory Pharmac y influenza virus vaccine, live, attenuated, for intranasal use 1 2008 [id number] 111 [employer], [employer]. ([facility]) complet ed influenza virus vaccine, live, attenuate d, for intranasa l use DoD tetanus toxoid, reduced diphtheria toxoid, and acellular pertu is vaccine, adsorbed 1 2008 [id number] 115 Sanofi Pasteur ([facility]) complet ed tetanus toxoid, reduced diphtheri a [...] red CODE 1 2008 [id number] 15 [facility] (SKB) complet ed influenza virus vaccine, split virus (incl. purified surface antigen)- retired CODE DoD typhoid vaccine, inactivated 2007 [id number] 101 sanofi pasteur complet ed typhoid vaccine, inactivat ed 02/17/07 Given Ambulat ory Pharmac y typhoid vaccine, inactivated 2007 [id number] 2 101 sanofi pasteur complet ed typhoid vaccine, inactivat ed 02/17/07 Given Ambulat ory Pharmac y typhoid vaccine, parenteral, other than acetone-kille d, dried 1 2007 [id number] 41 Sanofi Pasteur ([facility]) complet ed typhoid vaccine, parentera l, other than acetone-k illed, dried DoD influenza virus vaccine, live 2006 [id number] 111 [employer] [facility] t ed influenza virus vaccine, live 12/14/07 Given Ambulat ory Pharmac y influenza virus vaccine, live 2006 [id number] 111 [employer] comple t ed influenza virus vaccine, live 01/19/07 Given Ambulat ory Pharmac y influenza virus vaccine, live, attenuated, for intranasal use 1 2006 [id number] 111 [employer], [employer]. (MED) complet ed influenza virus vaccine, live, attenuate d, for intranasa l use DoD varicella virus vaccine 0 2006 21 () Not Given varicella virus vaccine DoD influenza virus vaccine,split 2005 [id number] 15 sanofi pasteur complet ed influenza virus vaccine,s plit 01/15/06 Given Ambulat ory Pharmac y influenza virus vaccine,split 2005 [id number] 15 sanofi pasteur complet ed influenza virus vaccine,s plit 01/15/06 Given Ambulat ory Pharmac y influenza virus vaccine, split virus (incl. purified surface antigen)-reti red CODE 1 2005 [id number] 15 Sanofi Pasteur ([facility]) complet ed influenza virus vaccine, split virus (incl. purified surface antigen)- retired CODE DoD influenza virus vaccine,split 2004 [id number] 15 sanofi pasteur complet ed influenza virus vaccine,s plit 12/25/04 Given Ambulat ory Pharmac y influenza virus vaccine,split 2004 [id number] 15 sanofi pasteur complet ed influenza virus vaccine,s plit 12/25/04 Given Ambulat ory Pharmac y influenza virus vaccine, split virus (incl. purified surface antigen)-reti red CODE 1 2004 [id number] 15 Sanofi Pasteur ([facility]) complet ed influenza virus vaccine, split virus (incl. purified surface antigen)- retired CODE DoD typhoid vaccine, inactivated 2004 [id number] 101 sanofi pasteur complet ed typhoid vaccine, inactivat ed 07/25/04 Given Ambulat ory Pharmac y typhoid vaccine, inactivated 2004 [id number] 101 sanofi pasteur complet ed typhoid vaccine, inactivat ed 07/25/04 Given Ambulat ory Pharmac y typhoid vaccine, parenteral, other than acetone-kille d, dried 1 2004 [id number] 2 41 Sanofi Pasteur ([facility]) complet ed typhoid vaccine, parentera l, other than acetone-k illed, dried DoD anthrax vaccine 2003 [id number] 24 [employer] complet ed anthrax vaccine 04/26/03 Given Ambulat ory Pharmac y anthrax vaccine 2003 [id number] 24 [employer] complet ed anthrax vaccine 04/26/03 Given Ambulat ory Pharmac y anthrax vaccine 5 2003 [id number] 24 [facility] complet ed anthrax vaccine DoD tuberculin purified protein derivative 2002 [id number] 96 sanofi pasteur complet ed tuberculi n purified protein derivativ e 11/30/02 Given Ambulat ory Pharmac y influenza virus vaccine, whole virus 2002 [id number] 16 sanofi pasteur complet ed influenza virus vaccine, whole virus 11/30/02 Given Ambulat ory Pharmac y influenza virus vaccine, whole virus 2002 [id number] 16 sanofi pasteur complet ed influenza virus vaccine, whole virus 11/30/02 Given Ambulat ory Pharmac y influenza virus vaccine, whole virus 0 2002 [id number] 16 Sanofi Pasteur (PMC) complet ed influenza virus vaccine, whole virus DoD anthrax vaccine 2002 [id number] 24 [employer] complet ed anthrax vaccine 10/02/02 Given Ambulat ory Pharmac y anthrax vaccine 2002 [id number] 24 [employer] complet ed anthrax vaccine 10/02/02 Given Ambulat ory Pharmac y anthrax vaccine 4 2002 [id number] 24 [facility] ([facility]) complet ed anthrax vaccine DoD vaccinia (smallpox) vaccine 2002 [id number] 75 [employer] complet ed vaccinia (smallpox ) vaccine 04/05/02 Given Ambulat ory Pharmac y anthrax vaccine 2002 [id number] 24 [employer] complet ed anthrax vaccine 04/05/02 Given Ambulat ory Pharmac y vaccinia (smallpox) vaccine 2002 [id number] 75 [employer] complet ed vaccinia (smallpox ) vaccine 04/05/02 Given Ambulat ory Pharmac y anthrax vaccine 2002 [id number] 24 [employer] complet ed anthrax vaccine 04/05/02 Given Ambulat ory Pharmac y anthrax vaccine 3 2002 [id number] 24 [facility] ([facility]) complet ed anthrax vaccine DoD vaccinia (smallpox) vaccine 0 2002 [id number] 75 [facility] ed vaccinia (smallpox ) vaccine DoD anthrax vaccine 2002 [id number] 24 [employer] complet ed anthrax vaccine 03/24/02 Given Ambulat ory Pharmac y anthrax vaccine 2002 [id number] 24 [employer] complet ed anthrax vaccine 03/24/02 Given Ambulat ory Pharmac y anthrax vaccine 2 2002 [id number] 24 [facility] ([facility]) complet ed anthrax vaccine DoD typhoid vaccine, inactivated 2002 [id number] 101 sanofi pasteur complet ed typhoid vaccine, inactivat ed 03/08/02 Given Ambulat ory Pharmac y anthrax vaccine 2002 [id number] 24 [employer] complet ed anthrax vaccine 03/08/02 Given Ambulat ory Pharmac y typhoid vaccine, inactivated 2002 [id number] 101 sanofi pasteur complet ed typhoid vaccine, inactivat ed 03/08/02 Given Ambulat ory Pharmac y anthrax vaccine 2002 [id number] 24 [employer] complet ed anthrax vaccine 03/08/02 Given Ambulat ory Pharmac y anthrax vaccine 1 2002 [id number] 24 [facility]gent [facility] ([facility]) complet ed anthrax vaccine DoD typhoid vaccine, parenteral, other than acetone-kille d, dried 0 2002 [id number] 41 Sanofi Pasteur ([facility]) complet ed typhoid vaccine, parentera l, other than acetone-k illed, dried DoD tuberculin purified protein derivative 2001 96 complet ed tuberculi n purified protein derivativ e 11/24/01 Given Ambulat ory Pharmac y influenza virus vaccine, whole virus 2001 [id number] 16 [facility] complet ed influenza virus vaccine, whole virus 11/24/01 Given Ambulat ory Pharmac y influenza virus vaccine, whole virus 2001 [id number] 16 [facility] complet ed influenza virus vaccine, whole virus 11/24/01 Given Ambulat ory Pharmac y influenza virus vaccine, whole virus 0 2001 [id number] 16 [facility] complet ed influenza virus vaccine, whole virus DoD tuberculin purified protein derivative 2001 [id number] 96 sanofi pasteur complet ed tuberculi n purified protein derivativ e 10/27/01 Given Ambulat ory Pharmac y influenza virus vaccine, whole virus 2000 [id number] 16 [facility] complet ed influenza virus vaccine, whole virus 11/25/00 Given Ambulat ory Pharmac y influenza virus vaccine, whole virus 2000 [id number] 16 [facility] complet ed influenza virus vaccine, whole virus 11/25/00 Given Ambulat ory Pharmac y influenza virus vaccine, whole virus 0 2000 [id number] 16 [facility] complet ed influenza virus vaccine, whole virus [...] dosage DoD tuberculin purified protein derivative 2000 [id number] 96 [employer] complet ed tuberculi n purified protein derivativ e 09/23/00 Given Ambulat ory Pharmac y yellow fever vaccine 2000 [id number] 37 sanofi pasteur complet ed yellow fever vaccine 09/23/00 Given Ambulat ory Pharmac y yellow fever vaccine 2000 [id number] 37 sanofi pasteur complet ed yellow fever vaccine 09/23/00 Given Ambulat ory Pharmac y yellow fever vaccine 0 2000 [id number] 37 Sanofi Pasteur ([facility]MC) complet ed yellow [...] DoD influenza virus vaccine, whole virus 1999 [id number] 16 Unknown complet ed influenza virus vaccine, whole virus 01/16/00 Given Ambulat ory Pharmac y influenza virus vaccine, whole virus 1999 [id number] 16 Unknown complet ed influenza virus vaccine, whole virus 01/16/00 Given Ambulat ory Pharmac y influenza virus vaccine, whole virus 0 1999 [id number] 16 Other (OTH) complet ed influenza virus vaccine, whole virus DoD influenza virus vaccine, whole virus 1998 [id number] 16 [facility] influenza virus vaccine, whole virus 11/21/98 Given Ambulat ory Pharmac y influenza virus vaccine, whole virus 19981149 [id number] 16 [facility] complet ed influenza virus vaccine, whole virus 11/21/98 Given Ambulat ory Pharmac y influenza virus vaccine, whole virus 0 [id number] 16 [facility] (CON) complet ed influenza virus vaccine, whole virus DoD poliovirus vaccine, live, oral 1998 [id number] 02 [facility] complet ed polioviru s vaccine, live, oral 08/07/98 Given Ambulat ory Pharmac y hepatitis A adult vaccine 1998 [id number] 52 [employer] & [employer] Inc complet ed hepatitis A adult vaccine 08/07/98 Given Ambulat ory Pharmac y poliovirus vaccine, live, oral 1998 [id number] 02 [facility] complet ed polioviru s vaccine, live, oral 08/07/98 Given Ambulat ory Pharmac y hepatitis A adult vaccine 1998 [id number] 52 [employer]ck & Company Inc complet ed hepatitis A adult vaccine 08/07/98 Given Ambulat ory Pharmac y trivalent poliovirus vaccine, live, oral 0 1998 [id number] 02 [facility] ([facility]) comple t ed trivalent polioviru s vaccine, [...] virus vaccine DoD meningococcal polysaccharid e (MPSV4) 19982718 [id number] 32 [facility] complet ed meningoco ccal polysacch aride (MPSV4) 07/31/98 Given Ambulat ory Pharmac y tetanus-dipht h toxoids (Td) adult/adol 1998 [id number] 09 [facility] complet ed tetanus-d iphth toxoids (Td) adult/ado l 07/31/98 Given Ambulat ory Pharmac y tuberculin purified protein derivative [id number] [facility] complet ed tuberculi n purified protein derivativ e 07/31/98 Given Ambulat ory Pharmac y influenza virus vaccine, whole virus [id number] [id number] 16 [facility] complet ed influenza virus vaccine, whole virus 07/31/98 Given Ambulat ory Pharmac y meningococcal polysaccharid e (MPSV4) 19981870 6055023 32 [facility] complet ed meningoco ccal polysacch aride (MPSV4) 07/31/98 Given Ambulat ory Pharmac y influenza virus vaccine, whole virus 19987202 [id number] 16 [facility] complet ed influenza virus vaccine, whole virus 07/31/98 Given Ambulat ory Pharmac y tetanus-dipht h toxoids (Td) adult/adol [id number] [facility] complet ed tetanus-d iphth toxoids (Td) adult/ado l 07/31/98 Given Ambulat ory Pharmac y tetanus and diphtheria toxoids, adsorbed, preservative free, for adult use (2 Lf of tetanus toxoid and 2 Lf of diphtheria toxoid) 0 1998 [id number] 09 [facility] (CON) complet ed tetanus and diphtheri a toxoids, adsorbed, preservat rebekah free, for adult use (2 Lf of tetanus toxoid and 2 Lf of diphtheri a toxoid) DoD influenza virus vaccine, whole virus 0 19981750 [id number] 16 [facility] (WAL) complet ed influenza virus vaccine, whole virus DoD meningococcal polysaccharid e vaccine (MPSV4) 0 19989563 1566099 32 [facility] (CON) complet ed meningoco ccal polysacch [...] Prevention' s HIV diagnostic algorithm. Refer to [facility] Lab Guide for additional information : [email or web address] x Testing performed by Hever rodriges. [facility] [employer] EPILAB Miscellan eous Sendouts Repository Sample Received (05/13/23 2:28 PM) 05/12 N [facility] [employer] EPILAB Encounters Combined list of: 1) Encounters from Department of Veterans Affairs facilities going backup to the last 18 months, not all VA inpatient encounters are included; 2) Encounters from the Department of Defense facilities going backup to 280 months. Location Location Details Encounter Type Encounter Number Reason For Visit Attending Provider ADM Date DC Date Status Disposition Source Theater Facility OUTPATIENT [id number] Theater Provider 09/16 Released w/o Limitations Theater Facilit y Theater Facility OUTPATIENT [id number] Theater Provider 11/14 Released w/o Limitations Theater Facilit [place] [address](AFN G [address] Sq-FM) OUTPATIENT [id number] Notes Entered by: BALJEET GALINDO 31 Dec 2018 1208 ------- ------- ------- ------- -- DHA4 RAMESH LÓPEZ 12/31 Released w/o Limitations [facility] [place] [address](A FNG [address] Med Sq-FM) [place] [address](AFN G [address] Med Sq-FM) OUTPATIENT [id number] Notes Entered by: BALJEET GALINDO 20 Feb 2019 0847 ------- ------- ------- ------- -- NAI LÓPEZ RAMESH Horton 02/20 [facility] Limitations [facility] [place] [address](A FNG [address] Med Sq-FM) [place] [address](AFN G 133 Med Sq-FM) OUTPATIENT [id number] Notes Entered by: Renetta VALLADARES 29 Apr 2019 0847 ------- ------- ------- ------- -- TriKerriSer RAMESH Moore 04/28 [facility] w/o Limitations [facility] [place] [address](A FNG [address] Med Sq-FM) [facility] [place] [address](AFN G [address] Med Sq-FM) OUTPATIENT [id number] Notes Entered by: Renetta VALLADARES 04 May 2021 0744 ------- ------- ------- ------- -- Tri-Ser EZIO Henriquez 05/04 [facility] Limitations [facility] [place] [address](A FNG [address] Med Sq-FM) [id number] Dental [id number] FRANCISCO JAVIER DING 05/10 Discharge Disposition: Home [...] facilities. Social History Type Response Date Comment Sour e Sex Representation Male (finding) 11/08/2019 Un known Organization This section is an empty social history section. DoD Sexual Orientation Ambula tory Pharmacy Gender identity Ambulator y Pharmacy Assessment and Plan Combined list of future [...] of Defense and Veterans Affairs (VA).VA Functional Vance Measurement (FIM) Scale: 1 = Total Assistance (Subject = 0% +), 2 = Maximal Assistance (Subject = 25% +), 3 = Moderate Assistance (Subject = 50% +), 4 = Minimal Assistance (Subject = 75% +), 5 = Supervision, 6 = Modified Vance (Device), 7 = Complete Vance (Timely, Safely). Assessment Date/Time Source Assessment Type Assessment Skill Assessment Score Assessment Details No data available for this section
[2024-07-17 11:15] VITALS: BP 119/83; PULSE 88; RESP 16; O2SAT 95
== END 2024-07-17 13:31 | disposition home or self-care (01) ==
LOC: ED 11:10
PROVIDERS: Emergency Provider Family Medicine
DX: R51.9 Headache, unspecified (principal)
CPT/HCPCS: 96361; 96374; 96375; 99284; J1200; J1885; J2765; J7030

== ENCOUNTER 2024-11-26 20:30 | Outpatient (CLI) | payer OTHER, SELFPAY | END 2024-11-26 20:31 | disposition home or self-care (01) | LOC: SLEEP 20:30 | PROVIDERS: PCP Family Medicine; Visit Provider Internal Medicine | DX: G47.10 Hypersomnia, unspecified (principal); G47.61 Periodic limb movement disorder | CPT/HCPCS: 95810 ==